=== PATIENT | female | born 1995 | race Caucasian/White ===

== ENCOUNTER 2020-01-22 19:07 | Emergency (ER) | payer OTHER, SELFPAY ==
[2020-01-22 19:16] VITALS: BP 173/122; PULSE 81; RESP 18; TEMP 37; O2SAT 100
--- NOTE | 2020-01-22 19:38 | ED.GENADULT ---
HPI - General Adult General Chief complaint: Extremity Injury, Lower Stated complaint: Bump on Leg/Pain Time Seen by Provider: 01/22/20 19:41 Source: patient History of Present Illness HPI narrative: Patient presents with a reddened area that is warm and tender to touch to her right lateral thigh. Patient states she noticed the area after she got a tattoo. No streaking no drainage. No fever. Patient states she has no history of abscesses normally healthy individual. Related Data Home Medications Medication Instructions Recorded Confirmed etonogestrel [Nexplanon] 1 implant SUBDERMAL ONCE 01/22/20 01/22/20 Allergies Allergy/AdvReac Type Severity Reaction Status Date / Time morphine Allergy Hives Verified 01/22/20 19:37 Review of Systems Review of Systems: Narrative: CONSTITUTIONAL: Denies fever, chills, or sweats. EYES: Denies visual changes, redness, or discharge. ENT: Denies rhinorrhea, congestion, sore throat, or otalgia. CARDIOVASCULAR: Denies chest pain, palpitations, or edema. RESPIRATORY: Denies cough or dyspnea. GASTROINTESTINAL: Denies abdominal pain, nausea, vomiting, or diarrhea. GENITOURINARY: Denies dysuria or hematuria. SKIN: Denies rash or itching. Tender area to right lateral thigh MUSCULOSKELETAL: Denies back pain, joint pain, or myalgia. NEUROLOGIC: Denies headache, numbness, or weakness. PSYCHIATRIC: Denies anxiety or depression. PMFSH Comments At time of signature, agree with nursing past medical, surgical, social and family history. There is no relevant family history pertinent to the presenting complaint Exam Narrative: Exam Narrative: GENERAL: Well-appearing, well-nourished, and in no acute distress. HEAD: Normocephalic, atraumatic. EYES: PERRLA and EOMI. ENT: Nares clear, no rhinorrhea or epistaxis. Mucous membranes moist. NECK: Supple. CHEST: Clear to auscultation. No respiratory distress. HEART: Regular rate and rhythm. No murmur heard. Normal peripheral pulses. ABDOMEN: Soft, nontender, nondistended, normal active bowel sounds. EXTREMITIES: Normal range of motion. No edema. SKIN: Warm, dry, no rash. 9 x 6 area of erythremia, tenderness to right lateral thigh no induration not fluctuant no indication for I&D NEURO: No focal deficits. Alert and oriented x3. [place]do Coma Scale Eye Opening: Spontaneous 4 [place] Coma Scale Motor: Obeys Commands 6 [place] Coma Scale Verbal: Oriented 5 [place] Coma Scale Total 15 Course Vital Signs Vital signs: Vital Signs Temperature 37.0 C 01/22/20 19:16 Pulse Rate 81 01/22/20 19:16 Respiratory Rate 18 01/22/20 19:16 Blood Pressure 173/122 H 01/22/20 19:16 Pulse Oximetry 100 01/22/20 19:16 Temperature 37.0 C 01/22/20 19:16 Pulse Rate 81 01/22/20 19:16 Respiratory Rate 18 01/22/20 19:16 Blood Pressure 173/122 H 01/22/20 19:16 Pulse Oximetry 100 01/22/20 19:16 BLOOD PRESSURE RECHECKED 160/74 Addressed elevated BP today. Today's blood pressure higher than recommended range. 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 Currently patient denies headache, dizziness, vision changes, CP or shortness of breath. Medical Decision Making Vital Signs Vital Signs: Vital Signs Temperature 37.0 C 01/22/20 19:16 Pulse Rate 81 01/22/20 19:16 Respiratory Rate 18 01/22/20 19:16 Blood Pressure 173/122 H 01/22/20 19:16 Pulse Oximetry 100 01/22/20 19:16 Temperature 37.0 C 01/22/20 19:16 Pulse Rate 81 01/22/20 19:16 Respiratory Rate 18 01/22/20 19:16 Blood Pressure 173/122 H 01/22/20 19:16 Pulse Oximetry 100 01/22/20 19:16 Critical Care Time Critical Care Time Critical Care Time: No Discharge Plan Discharge Clinical Impression: Abscess Patient Disposition: Home, Self-Care Condition: Stable Instructions: Antibiotic Form Additional Instructions: Warm compresses to the area 20-30 minutes 4-6 times a d
== END 2020-01-22 19:43 | disposition home or self-care (01) ==
PROVIDERS: Emergency Provider Nurse Practitioner Family
DX: L02.415 Cutaneous abscess of right lower limb (principal)
CPT/HCPCS: 99213; G0463